=== PATIENT | female | born 1940 | race African-American/Black ===

== ENCOUNTER 2016-11-01 17:50 | Emergency (ER) | payer MEDICARE, MEDICAID ==
--- NOTE | 2016-11-01 18:37 | RADIOLOGY REPORT (SQ) ---
EXAM DESCRIPTION: CHEST PA/LAT COMPLETED DATE/TIME: 11/01/2016 6:21 pm REASON FOR STUDY: cough COMPARISON: 06/28/2015 EXAM PARAMETERS: NUMBER OF VIEWS: two views TECHNIQUE: Digital Frontal and Lateral radiographic views of the chest acquired. RADIATION DOSE: NA LIMITATIONS: none FINDINGS: LUNGS AND PLEURA: No opacities, masses or pneumothorax. No pleural effusion. MEDIASTINUM AND HILAR STRUCTURES: No masses or contour abnormalities. HEART AND VASCULAR STRUCTURES: Heart normal size. No evidence for failure. BONES: No acute findings. HARDWARE: None in the chest. OTHER: No other significant finding. IMPRESSION: NO SIGNIFICANT RADIOGRAPHIC FINDING IN THE CHEST. TECHNICAL DOCUMENTATION: JOB ID: [id number] [employer]- All Rights Reserved
[2016-11-01] MEDS ORDERED: LEVOFLOXACIN 500 MG TABLET PO ONE (19:36)
--- NOTE | 2016-11-01 19:42 | ER Document Report ---
ED General - General Chief Complaint: Cough Stated Complaint: COUGH Time Seen by Provider: 11/01/16 18:07 Mode of Arrival: Wheelchair Information source: Patient Notes: Is a 75-year-old female with a history of MR (resident of [facility]) who presents to the emergency room with a cough and congestion. The patient is accompanied by her daughter. The patient's daughter is adamant that she does not want a significant workup (IV, blood work) unless it is absolutely essential. There is been no fever. Patient denies shortness of breath. She looks comfortable. TRAVEL OUTSIDE OF THE [place] IN LAST 30 DAYS: No - HPI Onset: Just prior to arrival Onset/Duration: Gradual Quality of pain: No pain Severity: None Pain Level: Denies Associated symptoms: Nonproductive cough. denies: Chest pain, Fever, Shortness of breath Exacerbated by: Denies Relieved by: Denies Similar symptoms previously: No Recently seen / treated by doctor: No - Related Data Allergies/Adverse Reactions: No Known Allergies Allergy (Unverified 05/28/15 10:10) Home Medications: Current Home Medications Furosemide 20 mg PO DAILY 11/01/16 [History] Ivermectin 3 mg PO DAILY 11/01/16 [History] Past Medical History - General Information source: Parent - Social History Smoking Status: Never Smoker Cigarette use (# per day): No Chew tobacco use (# tins/day): No Frequency of alcohol use: None Drug Abuse: None Lives with: Family - Rectal Family History: Reviewed & Not Pertinent Patient has suicidal ideation: No Patient has homicidal ideation: No - Past Medical History Cardiac Medical History: Reports: Hx Hypercholesterolemia, Hx Hypertension Neurological Medical History: Denies: Hx Seizures Renal/ Medical History: Denies: Hx Peritoneal Dialysis Surgical Hx: Negative Past Surgical History: Denies: Hx Hysterectomy Review of Systems - Review of Systems Constitutional: denies: Chills, Fever EENT: No symptoms reported Cardiovascular: No symptoms reported Respiratory: See HPI Gastrointestinal: No symptoms reported Genitourinary: No symptoms reported Female Genitourinary: No symptoms reported Musculoskeletal: No symptoms reported Skin: No symptoms reported Hematologic/Lymphatic: No symptoms reported Neurological/Psychological: No symptoms reported Physical Exam - Vital signs Vitals: Temp Pulse Resp BP Pulse Ox 98.3 F 87 18 181/85 H 97 11/01/16 18:02 11/01/16 18:02 11/01/16 18:02 11/01/16 18:02 11/01/16 18:02 Notes: 75-year-old female Physical exam: GENERAL: Alert comfortable, no distress. She does have a nonproductive cough and some congestion. HEAD: Atraumatic, normocephalic. EYES: Pupils equal round and reactive to light, extraocular movements intact, sclera anicteric, conjunctiva are normal. ENT: Moist mucous membranes. NECK: Normal range of motion, supple without lymphadenopathy or JVD. LUNGS: Breath sounds clear to auscultation bilaterally and equal. No wheezes rales or rhonchi. HEART: Regular rate and rhythm without murmurs, rubs or gallops. ABDOMEN: Soft, normoactive bowel sounds. No tenderness to palpation. No guarding, no rebound. No masses appreciated. EXTREMITIES: Normal range of motion, no pitting or edema. No clubbing or cyanosis. NEUROLOGICAL: Cranial nerves II through XII grossly intact. Normal speech, normal gait. PSYCH: Normal mood, normal affect. SKIN: Warm, Dry, normal turgor, no rashes or lesions noted. Course - Re-evaluation Re-evalutation: Is a 75-year-old female with cough and congestion. Her oxygenation is good at the bedside and her lungs are relatively clear. The x-ray is clear. Patient's daughter is requesting no blood work, IV or any further workup. Given that she looks good, I am okay with this. I am inclined to give her some antibiotic just in case she is in the early stages of a pneumonic process. She does have MR and she is a resident of [facility]. 11/01/16 19:42 - Vital Signs Vital signs: Temp Pulse Resp BP Pulse Ox 98.3 F 79 16 169/83 H 95 11/01/16 20:14 11/01/16 20:14 11/01/16 20:14 11/01/16 20:14 11/01/16 20:14 - Diagnostic Test Radiology reviewed: Image reviewed, Reports reviewed Discharge - Discharge Clinical Impression: Bronchitis Condition: Stable Disposition: HOME, SELF-CARE Instructions: Bronchitis ([facility]) Additional Instructions: Chest x-ray today showed no evidence of pneumonia. Patient was given levofloxacin (an antibiotic) in the emergency room. Take the antibiotic daily for the next 6 days (start tomorrow because the patient was given today's dose in the ER). I have written a prescription for Diflucan for a yeast infection if she develops symptoms after the antibiotics are complete. Symptoms of a yeast infection include itching and irritation in the vaginal area. Return to the emergency room For worsening cough, shortness of breath or any concerns that Ms. Child is getting worse. Continue other medicines. Have patient follow-up with her primary care doctor in the next few days. Prescriptions: Fluconazole [Diflucan] 150 mg PO ONCE PRN #1 tablet PRN Reason: Levofloxacin 500 mg PO DAILY #6 tablet
[2016-11-01 20:29] VITALS: BP 169/83
== END 2016-11-01 20:14 | disposition home or self-care (01) ==
LOC: ER 17:50
DX: J40 Bronchitis, not specified as acute or chronic (principal); R05 Cough; I10 Essential (primary) hypertension
CPT/HCPCS: 99283; 71020; A9270